=== PATIENT | male | born 1980 | race Caucasian/White ===

== ENCOUNTER 2018-02-15 20:06 | Emergency (ER) | payer OTHER ==
[~2018-02-15] VITALS: Ht 180.3 cm; Wt 90.7 kg
[~2018-02-15 20:06] MED LIST: HYDROCODON-ACE1 EAC7 PO; KEFLEX500 M1 PO; ZOFRAN4 MG PO
[2018-02-15] MEDS ORDERED: IBUPROFEN 800800 M1 PO (20:16)
[2018-02-15] MEDS ORDERED: ULTRAM 50MG TAB50 MG PO (21:19)
[2018-02-15 21:28] VITALS: BP 144/82
== END 2018-02-15 21:29 | disposition home or self-care (01) ==
LOC: M.ERS 20:06
DX: S83.8X2A Sprain of other specified parts of left knee, initial encounter (principal); Z90.49 Acquired absence of other specified parts of digestive tract; Z88.0 Allergy status to penicillin; Z88.8 Allergy status to other drugs, medicaments and biological substances; W01.0XXA Fall on same level from slipping, tripping and stumbling without subsequent striking against object, initial encounter; Y93.89 Activity, other specified; Y92.89 Other specified places as the place of occurrence of the external cause; Y99.8 Other external cause status

== ENCOUNTER 2018-03-19 18:20 | Emergency (ER) | payer OTHER ==
[~2018-03-19] VITALS: Ht 180.3 cm; Wt 104.3 kg
[~2018-03-19 18:20] MED LIST changes: +IBUPROFEN 800800 M1 PO; +ULTRAM 50MG TAB50 MG PO
[2018-03-19] MEDS ORDERED: KEFLEX500 M1 PO (19:21)
[2018-03-19] MEDS ORDERED: IBUPROFEN 800800 M1 PO (19:21)
[2018-03-19 19:36] VITALS: BP 132/79
[2018-03-20] MEDS ORDERED: NORCO 5-325 TA1 EAC1 PO (13:49)
== END 2018-03-19 19:37 | disposition home or self-care (01) ==
LOC: M.ERS 18:20
DX: S90.122A Contusion of left lesser toe(s) without damage to nail, initial encounter (principal); L03.032 Cellulitis of left toe; Z90.49 Acquired absence of other specified parts of digestive tract; Z88.0 Allergy status to penicillin; Z88.8 Allergy status to other drugs, medicaments and biological substances; X58.XXXA Exposure to other specified factors, initial encounter; Y93.89 Activity, other specified; Y92.89 Other specified places as the place of occurrence of the external cause; Y99.8 Other external cause status

== ENCOUNTER 2018-03-20 13:13 | Emergency (ER) | payer OTHER ==
[~2018-03-20] VITALS: Ht 180.3 cm; Wt 104.3 kg
[2018-03-20 13:42] VITALS: BP 142/92
[2018-03-20] MEDS ORDERED: NORCO 5-325 TA1 EAC1 PO (13:49)
== END 2018-03-20 13:52 | disposition home or self-care (01) ==
LOC: M.ERS 13:13
DX: S90.862A Insect bite (nonvenomous), left foot, initial encounter (principal); L03.116 Cellulitis of left lower limb; F17.210 Nicotine dependence, cigarettes, uncomplicated; Z88.0 Allergy status to penicillin; Z88.8 Allergy status to other drugs, medicaments and biological substances; Z90.49 Acquired absence of other specified parts of digestive tract; W57.XXXA Bitten or stung by nonvenomous insect and other nonvenomous arthropods, initial encounter; Y93.89 Activity, other specified; Y92.89 Other specified places as the place of occurrence of the external cause; Y99.8 Other external cause status

== ENCOUNTER 2018-11-26 11:53 | Emergency (ER) | payer OTHER ==
[~2018-11-26] VITALS: Ht 180.3 cm; Wt 102.1 kg
[~2018-11-26 11:53] MED LIST changes: +NORCO 5-325 TA1 EAC1 PO
[2018-11-26] MEDS ORDERED: NAPROSYN500 MG PO (12:50)
[2018-11-26] MEDS ORDERED: MEDROLDOSEPACK PO (12:50)
[2018-11-26] MEDS ORDERED: ZANAFLEX4 MG PO (12:50)
[2018-11-26 13:00] VITALS: BP 147/96
== END 2018-11-26 13:01 | disposition home or self-care (01) ==
LOC: M.ERS 11:53
DX: M54.12 Radiculopathy, cervical region (principal); M43.6 Torticollis; Z90.49 Acquired absence of other specified parts of digestive tract; Z88.0 Allergy status to penicillin; Z88.8 Allergy status to other drugs, medicaments and biological substances

== ENCOUNTER 2019-05-04 15:43 | Emergency (ER) | payer OTHER ==
[~2019-05-04] VITALS: Ht 180.3 cm; Wt 100.2 kg
[~2019-05-04 15:43] MED LIST changes: +MEDROLDOSEPACK PO; +NAPROSYN500 MG PO; +ZANAFLEX4 MG PO
[2019-05-04] MEDS ORDERED: LISINOPRIL-HCT1 EACH PO (15:49)
[2019-05-04] MEDS ORDERED: TRAZODONE 150150 M1 PO (15:49)
[2019-05-04 16:07] LABS: WBC 8.3 thou/uL (4.0-11.0)
[2019-05-04 16:09] LABS: ABSOLUTE EOSINOPHILS 0.1 thou/uL (0.0-0.7); ABSOLUTE LYMPHOCYTES 2.6 thou/uL (0.8-5.3); ABSOLUTE MONOCYTES 0.5 thou/uL (0.0-1.2); ABSOLUTE NEUTROPHILS 5.1 thou/uL (1.6-8.1); BASOPHILS 0.6 %; EOSINOPHILS 1.6 %; HEMATOCRIT 44.8 % (42.0-52.0); HEMOGLOBIN 15.5 gm/dL (14.0-18.0); MCHC 34.6 g/dL (28.0-37.0); MCV 89.7 fL (80.0-100.0); MONOCYTES 5.5 %; MPV 8.7 fl. (7.2-11.1); NUCLEATED RBCS 0 /100WBC; PLATELET COUNT* 206 thou/uL (150-400); POLYS 61.3 %; RBC 4.99 mil/uL (4.50-6.00)
[2019-05-04 16:14] LABS: ANION GAP 11 mmol/L (7-16); BUN 14 mg/dL (7-18); CALCIUM 8.9 mg/dL (8.5-10.1); CHLORIDE 103 mmol/L (98-107); CO2 28 mmol/L (21-32); GLUCOSE 137 mg/dL (70-99); POTASSIUM 3.9 mmol/L (3.5-5.1); SODIUM 142 mmol/L (136-145)
[2019-05-04 16:27] LABS: ALBUMIN 4.2 g/dL (3.4-5.0); ALKALINE PHOSPHATASE 93 U/L (46-116); SGPT 51 U/L (30-65); TOTAL BILIRUBIN 0.5 mg/dL (<0.1-1.0); TROPONIN-I LEVEL <0.06 ng/mL (<0.06)
[2019-05-04 17:00] LABS: SGOT 24 U/L (15-37); TOTAL PROTEIN 6.8 g/dL (6.4-8.2)
[2019-05-04 17:17] LABS: URINE BILIRUBIN NEGATIVE (Negative); URINE BLOOD NEGATIVE (Negative); URINE CLARITY CLEAR; URINE COLOR YELLOW; URINE GLUCOSE-RANDOM NEGATIVE (Negative); URINE KETONES NEGATIVE (Negative); URINE LEUKOCYTES-REFLEX NEGATIVE (Negative); URINE NITRITE-REFLEX NEGATIVE (Negative); URINE PROTEIN NEGATIVE (Negative); URINE SPECIFIC GRAVITY 1.025 (1.005-1.030); URINE UROBILINOGEN 0.2 E.U./dl (0.2-1.0)
[2019-05-04 17:26] LABS: AMP/METHAMP Negative (Negative); BARBITURATES Negative (Negative); BENZODIAZEPINES Negative (Negative); COCAINE Negative (Negative); METHADONE Negative (Negative); OPIATES Negative (Negative); PCP Negative (Negative); THC Negative (Negative)
[2019-05-04 18:24] LABS: APTT 24.9 Seconds (25.0-31.3); PROTIME 10.2 Seconds (9.20-11.50)
[2019-05-04] MEDS ORDERED: ASPIR 8181 MG PO (19:10)
[2019-05-04 19:30] VITALS: BP 117/65
--- NOTE | 2019-05-05 11:33 | EKG ---
[place] [address] ELECTROCARDIOGRAM REPORT Name: MARTHA NGUYEN [id number] Admission: 05/04/19 Attend Phys: Discharge: 05/04/19 Date of : 76 Report #: [id number] THIS REPORT FOR: //name// [facility] ED Test Date: 2019-05-04 Test Time: 15:48:10 Pat Name: MARTHA NGUYEN Department: Room: Gender: M Renal Nurse: : 1980 Requested By: Nael Freire Order Number: [id number] MD: Horacio Robbins Measurements Intervals [place] Rate: 62 P: 45 VA: 149 QRS: 63 QRSD: 90 T: 62 QT: 405 QTc: 412 Interpretive Statements Sinus rhythm No previous ECG available for comparison Electronically Signed On 05-05-2019 11:33:14 CDT by Horacio Robbins [email or web address] <ELECTRONICALLY SIGNED> By: Horacio Robbins MD, [facility] 05/05/19 1133 [id number] Horacio Robbins MD, FACC /EPI
== END 2019-05-04 19:35 | disposition left against medical advice (07) ==
LOC: M.ERS 15:43
PROVIDERS: Physician Assistant
DX: I25.10 Atherosclerotic heart disease of native coronary artery without angina pectoris (principal); R07.89 Other chest pain; R42 Dizziness and giddiness; R06.02 Shortness of breath; R51 Headache; R06.00 Dyspnea, unspecified; Z88.0 Allergy status to penicillin; Z88.8 Allergy status to other drugs, medicaments and biological substances